=== PATIENT | female | born 1970 ===

== ENCOUNTER 2022-06-09 11:30 | Inpatient (IN) | payer OTHER ==
[~2022-06-09] VITALS: Ht 162.6 cm; Wt 84.4 kg
[2022-06-09] MEDS ORDERED: SYNTHROID100 MCG PO (15:03)
[2022-06-09] MEDS ORDERED: CRESTOR10 MG PO (15:03)
[2022-06-17] MEDS ORDERED: TRAM1TAB98 PO (10:23)
== END 2022-06-17 12:15 | disposition home or self-care (01) | DRG 331 ==
LOC: SURH 06-14 07:44 → O/R 06-14 07:44 → SURG 06-14 10:15 → SURH 06-14 15:27
PROVIDERS: ADMIT Surgery; ATTEND Surgery
PROC: 0DJD8ZZ Inspection of Lower Intestinal Tract, Via Natural or Artificial Opening Endoscopic (ICD-10-PCS; 2022-06-14)
PROC: 0DTN4ZZ Resection of Sigmoid Colon, Percutaneous Endoscopic Approach (ICD-10-PCS; principal; 2022-06-14 10:15)
DX: K57.32 Diverticulitis of large intestine without perforation or abscess without bleeding (principal); Z20.822 Contact with and (suspected) exposure to COVID-19; E03.9 Hypothyroidism, unspecified; E78.5 Hyperlipidemia, unspecified